=== PATIENT | female | born 1950 | race Caucasian/White ===

== ENCOUNTER → 2016-06-24 | Day surgery (SDC) | payer OTHER ==
[~2016-06-24] VITALS: Ht 160 cm; Wt 63.5 kg
[~2016-06-24] MED LIST: HYDROCHLOROTHIAZIDE; LISINOPRIL10 M1 PO; PRAVASTATIN SOD40 M2 PO; ZOFRAN4 M2 PO
[2016-06-24 16:32] LABS: ABSOLUTE BASOPHIL COUNT 0.1 /CUMM (0.0-0.2); ABSOLUTE EOSINOPHIL COUNT 0.1 /CUMM (0.0-0.7); ABSOLUTE GRANULOCYTE CT 7.8 /CUMM (1.4-6.5); ABSOLUTE LYMPH COUNT 2.6 /CUMM (1.2-3.4); ABSOLUTE MONOCYTE COUNT 0.8 /CUMM (0.10-0.60); BASOPHIL % 0.7 % (0.0-2.0); EOSINOPHIL % 1.2 % (0-5); HEMATOCRIT 42.5 % (37-47); MEAN CORPUSCULAR HGB 29.2 PG (27.0-31.0); MEAN CORPUSCULAR VOLUME 88.6 FL (81.0-99.0); MEAN PLATELET VOLUME 7.3 FL (7.4-10.4); PLATELET COUNT 252 /CUMM (130-400); RBC DISTRIBUTION WIDTH 13.4 % (11.5-14.5); WHITE BLOOD CELL COUNT 11.4 /CUMM (4.8-10.8)
[2016-06-24 16:35] LABS: GRANULOCYTE % 68.6 % (42.2-75.2)
--- NOTE | 2016-06-24 20:41 | Operative Report ---
Operative/Inv Procedure Report Surgery Date: 06/24/16 Name of Procedure: Right ureter ESWL, fluoroscopy, cystoscopy with right stent insertion. Pre-Operative Diagnosis: Severe right [place] with colic due to 9 mm mid ureteral stone. Post-Operative Diagnosis: Same Estimated Blood Loss: scant Surgeon/Lead Former: FELIPE DILL MD Anesthesia: laryngeal mask airway Specimens: None Complications: None Condition: Improved, pain-free in recovery room Operative/Procedure Note Note: The patient was taken to the operating room and placed on the ESWL table in supine position. Time out was performed, with the patient awake, to confirm identity, procedure, laterality, and other pertinent linda-operative information. After adequate anesthesia, the patient was positioned so that the right flank was placed over the ESWL table cut-out, and overlying the dome of the shockwave generator. C-arm fluroscopy, as well as renal US was used to locate the stone, and evaluate the right kidney. The stone was faintly visible on fluroloscopy at the right mid-ureter. Renal US confirmed mild hydronephrosis with no additional stone seen in the right kidney. The right ureter stone was approximate 9 mm in size and clearly faintly visible with fluoroscopy. Using the C-Arm fluoroscopy in an A-P, and Oblique views, the position of the ureter stone was optimized at the center of the crosshairs. At this point, E.S.W.L. was initiated at low power levels x 200 shocks. After noting the patient's tolerance to the shockwaves, the shockwave power level was quickly maximized. At the end of the procedure, the composition of the stone had changed significantly indicating the pulverization of the ureter stone. A total of 3000 shockwaves were delivered to the stone in order to achieve adequate lithotrypsy. Once the ESWL concluded, the pt. was repositioned in frog-legged position, draped and prepped in the usual surgical fashion. A 22 Syriac cystoscope sheath with a 30 angle lens was then inserted into the bladder. The bladder was thoroughly and systematically surveyed revealing no tumor no stone. Both ureteral orifices were in their orthotopic position. The right orifice was identified, and using a 8 Syriac cone-tipped catheter, retrograde pyelogram was performed. Right-sided hydronephrosis with slow drainage of contrast material was noted on the right side. At this point I decided to place a stent. The right orifice was intubated with a 0.035 Glidewire which was advanced into the right renal pelvis without difficulty. A 6 x 20cm Bard double-J stent was railroaded over the Glidewire, and advanced into the right renal pelvis without difficulty. Placement of the stent was confirmed with fluoroscopic visualization. With the proximal coil was visualized in the right renal pelvis, and the distal coil was seen in the bladder, the Glidewire was removed. The stent remained in proper place. The cystoscope was then removed after draining the bladder. The patient tolerated the procedures well, was awakened, and taken to recovery in satisfactory condition via stretcher. The pt will be dischared to home with pain meds, diet orders, and intructions to catch fragments with straining the urine. The patient is to have follow-up renal ultrasound and KUB within 1-2 weeks and f/u in the office after discharge. Findings: 9 mm distal ureter stone, 6 x 20 cm stent inserted without difficulty. Discharge Disposition: PACU CC: FELIPE DILL MD
== END ==
LOC: STS 01:36
PROVIDERS: Urology
DX: N13.2 Hydronephrosis with renal and ureteral calculous obstruction (principal); I10 Essential (primary) hypertension; F17.200 Nicotine dependence, unspecified, uncomplicated
CPT/HCPCS: 82436; C2617; J2250

== ENCOUNTER → 2016-07-20 | Day surgery (SDC) | payer OTHER ==
[~2016-07-20] VITALS: Ht 160 cm; Wt 63.5 kg
--- NOTE | 2016-07-20 10:54 | Operative Report ---
Operative/Inv Procedure Report Surgery Date: 07/20/16 Name of Procedure: right ureter ESWL, fluorosocopy, cystoscopy with right stent removal Pre-Operative Diagnosis: right ureter stone with stent. Post-Operative Diagnosis: same Estimated Blood Loss: scant Surgeon/Agriculturist: FELIPE DILL MD Anesthesia: moderate sedation Specimens: right stent Complications: none Operative/Procedure Note Note: The patient was taken to the operating room and placed on the ESWL table in supine position. Time out was performed, with the patient awake, to confirm identity, procedure, laterality, and other pertinent linda-operative information. After adequate anesthesia, the patient was positioned so that the right flank was placed over the ESWL table cut-out, and overlying the dome of the shockwave generator. C-arm fluroscopy, as well as renal US was used to locate the stone, and evaluate the right kidney. The 8mm stone was visible on fluroloscopy at the right mid-ureter. Renal US confirmed resolved hydronephrosis, with no additional stone seen in the right kidney. Using the C-Arm fluoroscopy in an A- P, and Oblique view, the position of the ureter stone was optimized at the center of the crosshairs. At this point, E.S.W.L. was initiated at low power levels x 200 shocks. After noting the patient's tolerance to the shockwaves, the shockwave power level was quickly maximized. At the end of the procedure, the composition of the stone had changed significantly indicating the pulverization of the ureter stone. A total of 3000 shockwaves were delivered to the stone in order to achieve adequate lithotrypsy. Once the ESWL concluded, the pt. was repositioned in frog-legged position, draped and prepped in the usual surgical fashion. A 22 Syriac cystoscope sheath with a 30 angle lens was then inserted into the bladder. the right stent was visible and grasped with a grasper. The cystoscope, along with the entire stent , was then removed without difficulty. The patient tolerated the procedures well, was awakened, and taken to recovery in satisfactory condition via stretcher. The pt will be dischared to home with pain meds, diet orders, and intructions to catch fragments with straining the urine. The patient is to have follow-up renal ultrasound and KUB within 1-2 weeks and f/u in the office after discharge. Findings: 8mm right ureter stone shattered at 3000: no hydro on intra-op US. Discharge Disposition: PACU CC: FELIPE DILL MD
== END ==
LOC: STS 02:47
DX: N20.1 Calculus of ureter (principal); Z87.442 Personal history of urinary calculi; F17.200 Nicotine dependence, unspecified, uncomplicated; I10 Essential (primary) hypertension
CPT/HCPCS: J1580; J1885; J2250